=== PATIENT | female | born 1965 | race Hispanic/Latino ===

== ENCOUNTER 2024-02-24 10:50 | Emergency (ER) | payer OTHER ==
[~2024-02-24] VITALS: Ht 154.9 cm; Wt 44.5 kg
[2024-02-24] MEDS ORDERED: GARLIC OIL1000 MG (11:22)
[2024-02-24] MEDS ORDERED: WOMEN'S DAILY1 EACH (11:22)
[2024-02-24] MEDS ORDERED: zinc (11:22)
[2024-02-24] MEDS ORDERED: VITAMIN C500 MG PO (11:22)
[2024-02-24 12:44] VITALS: PULSE 87; RESP 14; TEMP 98.1; O2SAT 100
[2024-02-24] MEDS ORDERED: NAPROSYN500 MG PO (12:50)
[2024-02-24] MEDS ORDERED: CYCLOBENZAPRINE5 MG PO (12:51)
== END 2024-02-24 13:01 | disposition home or self-care (01) ==
LOC: FSED 10:59
DX: S00.83XA Contusion of other part of head, initial encounter (principal); S16.1XXA Strain of muscle, fascia and tendon at neck level, initial encounter; S20.214A Contusion of middle front wall of thorax, initial encounter; S40.011A Contusion of right shoulder, initial encounter; S50.11XA Contusion of right forearm, initial encounter; S40.021A Contusion of right upper arm, initial encounter; S70.11XA Contusion of right thigh, initial encounter; S20.224A Contusion of middle back wall of thorax, initial encounter; V43.52XA Car driver injured in collision with other type car in traffic accident, initial encounter; Y92.488 Other paved roadways as the place of occurrence of the external cause; E78.5 Hyperlipidemia, unspecified; J45.909 Unspecified asthma, uncomplicated
CPT/HCPCS: 70450; 71046; 72125; 99283